=== PATIENT | male | born 1955 | race Two or more races ===

== ENCOUNTER 2018-11-29 10:17 | Emergency (ER) | payer MEDICARE, OTHER ==
[~2018-11-29] VITALS: Ht 1 cm; Wt 0.5 kg
[2018-11-29 11:49] LABS: Basophils # (auto) 0.1 uL; Basophils % (auto) 0.8 % (0.0-2.0); Eosinophils # (auto) 0.5 uL; Eosinophils % (auto) 6.3 % (0.0-7.0); Hematocrit 44.2 % (41.0-53.0); Hemoglobin 14.5 g/dL (13.5-17.5); Lymphocytes # (auto) 1.2 uL; Lymphocytes % (auto) 13.9 % (10.0-50.0); Mean Corpuscular Hemoglobin 29.4 pg (28.0-32.0); Mean Corpuscular Hgb Conc. 32.9 g/dL (32.0-36.0); Mean Corpuscular Volume 89.4 fL (80.0-100.0); Monocytes # (auto) 0.7 uL; Monocytes % (auto) 8.3 % (0.0-12.0); Neutrophils # (auto) 5.9 uL; Neutrophils % (auto) 70.7 % (37.0-80.0); Platelet Count (auto) 227 10^3/uL (140-450); Red Blood Cells 4.94 10^6/uL (4.5-5.90); Red Cell Distribution Width 14.5 % (11.8-14.3); White Blood Cell 8.4 10^3/uL (4.4-10.8)
[2018-11-29 12:02] LABS: INR 0.95 (0.9-1.15)
[2018-11-29 12:08] LABS: Alanine Aminotransferase 23 U/L (16-61); Albumin 3.4 g/dL (3.4-5.0); Anion Gap 6 (5-15); Aspartate Aminotransferase 16 U/L (15-37); BUN/Creatinine Ratio 15.5; Blood Urea Nitrogen 13 mg/dL (7-18); Calcium 8.3 mg/dL (8.5-10.1); Carbon Dioxide 26 mmol/L (21-32); Chloride 107 mmol/L (98-107); GFR African American 119 mL/min; GFR Non-African American 98 mL/min; Glucose 62 mg/dL (74-106); Potassium 4.4 mmol/L (3.5-5.1); Sodium 139 mmol/L (136-145)
[2018-11-29 12:13] LABS: Alkaline Phosphatase 85 U/L (45-117); Bilirubin, Total 0.4 mg/dL (0.2-1.0); Total Protein 6.8 g/dL (6.4-8.2)
[2018-11-29] MEDS ORDERED: DexAMETHasone SOD PHOS 10MG/1ML VIAL INJ IV ONE (13:15)
[2018-11-29] MEDS ORDERED: LEVETIRACETAM INJ 1,000 MG in D5W 5% 100 ML IV ONE (13:30)
[2018-11-29 13:44] VITALS: BP 142/87
== END 2018-11-29 14:01 | disposition short-term general hospital (02) ==
LOC: ER 10:17 → EDBD 10:17 → ER 14:01
DX: I62.9 Nontraumatic intracranial hemorrhage, unspecified (principal); I11.0 Hypertensive heart disease with heart failure; I50.9 Heart failure, unspecified; E11.9 Type 2 diabetes mellitus without complications; I25.2 Old myocardial infarction; E78.5 Hyperlipidemia, unspecified
CPT/HCPCS: 36415; 70450; 71045; 80053; 82962; 83735; 83880; 84484; 85025; 85610; 85730; 93005; 96365; 96375; 99285; J1100; J1953; J7060